=== PATIENT | female | born 1990 | race Caucasian/White ===

== ENCOUNTER 2017-03-05 19:22 | Emergency (ER) | payer OTHER ==
[~2017-03-05] VITALS: Ht 160 cm; Wt 72.3 kg
[~2017-03-05 19:22] MED LIST: MOTRIN800 MG PO; NO HOME MEDS; PRENATAL TABLE1 EAC3 PO; ZITHROMAX Z-PA250 MG PO
[2017-03-05 20:34] LABS: ADD MIUA? YES; BILIRUBIN NEGATIVE; BLOOD NEGATIVE; COLOR YELLOW ((YELLOW)); GLUCOSE (STRIP) NEGATIVE; KETONES NEGATIVE; LEUKOCYTES TRACE; NITRITE NEGATIVE; PROTEIN (STRIP) NEGATIVE; SPECIFIC GRAVITY 1.021 (1.000-1.030); UROBILINOGEN 0.2 MG/DL (0.2-1.0)
[2017-03-05 20:39] LABS: BACTERIA NONE SEEN /HPF; EPITHELIAL CELLS 1+ /HPF; MUCUS TRACE /LPF; RED BLOOD CELLS 0-5 /HPF (0-5); UCUL ADDED? NO; WHITE BLOOD CELLS 0-5 /HPF (0-5)
[2017-03-05 20:48] LABS: MCH 29.7 PG (29.0-34.0); MCHC 33.6 G/DL (30.0-36.0); MCV 88.4 FL (83-99); MEAN PLAT.VOLUME 9.8 uM^3 (9.5-12.4); PLATELET COUNT 250 K/uL (156-360); RBC DIS.WIDTH-CV 12.8 % (11.8-14.6); RBC DIS.WIDTH-SD 41.6 % (39-53); RED BLOOD COUNT 4.41 M/uL (3.80-5.20); WHITE BLOOD COUNT 9.9 K/uL (4.1-10.2)
[2017-03-05 20:59] LABS: CHLORIDE 106 mEq/L (99-109); POTASSIUM 4.5 mEq/L (3.7-5.4); SODIUM 137 mEq/L (136-147)
[2017-03-05 21:01] LABS: GLUCOSE 93 mg/dL (70-99)
[2017-03-05 21:02] LABS: ANION GAP 5 MEQ/L (2-14)
[2017-03-05 21:03] LABS: TOTAL BILIRUBIN 0.2 mg/dL (0.0-1.0)
[2017-03-05 21:05] LABS: ALKALINE PHOSPHATASE 59 IU/L (3-129); GFR ESTIMATE (CALCULATED) > 59 mL/min/
[2017-03-05 21:06] LABS: UREA NITROGEN (BUN) 15 mg/dL (9-23)
[2017-03-05 21:07] LABS: QUANTITATIVE HCG < 4.0 MIU/ML
[2017-03-05] MEDS ORDERED: MOTRIN800 MG PO (23:38)
[2017-03-05 23:47] VITALS: BP 134/88
== END 2017-03-05 23:49 | disposition home or self-care (01) ==
LOC: EME 19:22
DX: R10.31 Right lower quadrant pain (principal); F17.200 Nicotine dependence, unspecified, uncomplicated
CPT/HCPCS: 74177; 80053; 81003; 84702; 85027; 99281; 99284; J7030

== ENCOUNTER 2017-04-01 09:57 | Emergency (ER) | payer OTHER ==
[~2017-04-01] VITALS: Ht 160 cm; Wt 70.5 kg
[2017-04-01 10:26] VITALS: BP 127/74
[2017-04-01] MEDS ORDERED: MOTRIN800 MG PO (12:30)
[2017-04-01] MEDS ORDERED: ERYTHROMYC1 APPLICAT RIGHT EYE (12:30)
== END 2017-04-01 12:52 | disposition home or self-care (01) ==
LOC: EME 09:57
DX: S05.01XA Injury of conjunctiva and corneal abrasion without foreign body, right eye, initial encounter (principal); W22.8XXA Striking against or struck by other objects, initial encounter; F17.200 Nicotine dependence, unspecified, uncomplicated
CPT/HCPCS: 99281; 99283

== ENCOUNTER 2017-09-16 07:15 | Emergency (ER) | payer OTHER ==
[~2017-09-16] VITALS: Ht 160 cm; Wt 60.2 kg
[~2017-09-16 07:15] MED LIST changes: +ERYTHROMYC1 APPLICAT RIGHT EYE
[2017-09-16 07:39] LABS: BASOPHIL (%) 0.7 % (0-1); BASOPHIL COUNT 0.1 K/uL (0-0.1); EOSINOPHIL (%) 3.1 % (0-5); EOSINOPHIL COUNT 0.4 K/uL (0-0.3); HEMATOCRIT 41.9 % (36.0-46.0); HEMOGLOBIN 14.4 G/DL (11.9-15.5); IMMATURE GRANULOCYTE (%) 0.2 % (0.0-0.7); LYMPHOCYTE (%) 29.8 % (15-42); LYMPHOCYTE COUNT 3.5 K/uL (1.0-2.8); MCH 30.8 PG (29.0-34.0); MCHC 34.4 G/DL (30.0-36.0); MCV 89.5 FL (83-99); MONOCYTE (%) 9.4 % (3-12); MONOCYTE COUNT 1.1 K/uL (0-0.8); NEUTROPHIL (%) 56.8 % (45-76); NEUTROPHIL COUNT 6.6 K/uL (1.8-6.4); PLATELET COUNT 243 K/uL (156-360); RBC DIS.WIDTH-CV 13.4 % (11.8-14.6); RBC DIS.WIDTH-SD 44.2 % (39-53); RED BLOOD COUNT 4.68 M/uL (3.80-5.20); WHITE BLOOD COUNT 11.7 K/uL (4.1-10.2)
[2017-09-16 07:48] LABS: CHLORIDE 109 mEq/L (99-109); SODIUM 140 mEq/L (136-147)
[2017-09-16 07:50] LABS: GLUCOSE 90 mg/dL (70-99)
[2017-09-16 07:54] LABS: CREATININE 0.8 mg/dL (0.6-1.3); GFR ESTIMATE (CALCULATED) > 59 mL/min/; UREA NITROGEN (BUN) 13 mg/dL (9-23)
[2017-09-16 08:07] LABS: APPEARANCE CLEAR ((CLEAR)); BILIRUBIN NEGATIVE; BLOOD SMALL; COLOR YELLOW ((YELLOW)); GLUCOSE (STRIP) NEGATIVE; KETONES NEGATIVE; LEUKOCYTES SMALL; NITRITE NEGATIVE; PROTEIN (STRIP) NEGATIVE; SPECIFIC GRAVITY 1.021 (1.000-1.030); UROBILINOGEN 0.2 MG/DL (0.2-1.0)
[2017-09-16 08:11] LABS: BACTERIA NONE SEEN /HPF; EPITHELIAL CELLS RARE /HPF; MUCUS TRACE /LPF; RED BLOOD CELLS 0-5 /HPF (0-5); UCUL ADDED? YES
[2017-09-16] MEDS ORDERED: TYLENOL WITH C1 EACH PO (10:37)
[2017-09-16] MEDS ORDERED: MACROBID100 MG PO (10:37)
[2017-09-16 10:46] VITALS: BP 118/82
== END 2017-09-16 10:47 | disposition home or self-care (01) ==
LOC: EME 07:15
PROVIDERS: Physician Assistant
DX: N83.209 Unspecified ovarian cyst, unspecified side (principal); N39.0 Urinary tract infection, site not specified; F17.200 Nicotine dependence, unspecified, uncomplicated; F41.9 Anxiety disorder, unspecified; F31.9 Bipolar disorder, unspecified
CPT/HCPCS: 76856; 80048; 81003; 81025; 85025; 87086; 99281; 99285

== ENCOUNTER 2017-11-10 13:11 | Emergency (ER) | payer OTHER ==
[~2017-11-10] VITALS: Ht 160 cm; Wt 56.2 kg
[~2017-11-10 13:11] MED LIST changes: +MACROBID100 MG PO; +TYLENOL WITH C1 EACH PO
[2017-11-10 14:10] LABS: APPEARANCE SL.HAZY ((CLEAR)); BILIRUBIN NEGATIVE; BLOOD NEGATIVE; COLOR YELLOW ((YELLOW)); GLUCOSE (STRIP) NEGATIVE; KETONES NEGATIVE; LEUKOCYTES NEGATIVE; NITRITE NEGATIVE; PROTEIN (STRIP) NEGATIVE; SPECIFIC GRAVITY 1.029 (1.000-1.030); UROBILINOGEN 0.2 MG/DL (0.2-1.0)
[2017-11-10 14:21] LABS: BACTERIA RARE /HPF; EPITHELIAL CELLS RARE /HPF; MUCUS 2+ /LPF; RED BLOOD CELLS 0-5 /HPF (0-5); WHITE BLOOD CELLS 0-5 /HPF (0-5)
[2017-11-10 14:25] LABS: SOURCE SWAB
[2017-11-10 15:01] VITALS: BP 121/81
== END 2017-11-10 15:16 | disposition home or self-care (01) ==
LOC: EME 13:11
PROVIDERS: Physician Assistant
DX: Z20.2 Contact with and (suspected) exposure to infections with a predominantly sexual mode of transmission (principal); F41.9 Anxiety disorder, unspecified; F31.9 Bipolar disorder, unspecified; N83.209 Unspecified ovarian cyst, unspecified side; F17.200 Nicotine dependence, unspecified, uncomplicated
CPT/HCPCS: 81003; 87210; 87491; 87591; 99281; 99284

== ENCOUNTER 2017-12-18 22:32 | Inpatient (IN) | payer OTHER ==
[~2017-12-18] VITALS: Ht 162.6 cm; Wt 54.7 kg
[~2017-12-18 22:32] MED LIST changes: +CAMILA0.35 MG PO
[2017-12-19 06:38] VITALS: BP 135/56
[2017-12-19 12:20] VITALS: BP 148/87
[2017-12-19 15:56] LABS: HEMATOCRIT 34.5 % (36.0-46.0); HEMOGLOBIN 11.5 G/DL (11.9-15.5); MCH 30.3 PG (29.0-34.0); MCHC 33.3 G/DL (30.0-36.0); PLATELET COUNT 205 K/uL (156-360); RBC DIS.WIDTH-CV 13.9 % (11.8-14.6); RBC DIS.WIDTH-SD 46.5 % (39-53); RED BLOOD COUNT 3.79 M/uL (3.80-5.20); WHITE BLOOD COUNT 14.7 K/uL (4.1-10.2)
[2017-12-19 16:19] LABS: CHLORIDE 109 MEQ/L (99-109); CREATININE 0.8 MG/DL (0.6-1.3); GFR ESTIMATE (CALCULATED) > 59 mL/min/; GLUCOSE 177 mg/dL (70-99); SODIUM 136 MEQ/L (136-147); UREA NITROGEN (BUN) 12 mg/dL (9-23)
[2017-12-19 16:20] VITALS: BP 123/57
[2017-12-19 20:22] VITALS: BP 136/94
[2017-12-19 20:27] VITALS: BP 125/81
[2017-12-20 00:19] VITALS: BP 106/62
[2017-12-20 03:39] VITALS: BP 102/57
[2017-12-20 05:46] LABS: HEMATOCRIT 30.6 % (36.0-46.0); HEMOGLOBIN 10.1 G/DL (11.9-15.5); MCV 90.8 FL (83-99); PLATELET COUNT 184 K/uL (156-360); RBC DIS.WIDTH-CV 13.8 % (11.8-14.6); RBC DIS.WIDTH-SD 46.3 % (39-53); RED BLOOD COUNT 3.37 M/uL (3.80-5.20); WHITE BLOOD COUNT 13.4 K/uL (4.1-10.2)
[2017-12-20 06:09] LABS: CHLORIDE 111 MEQ/L (99-109); CREATININE 0.8 MG/DL (0.6-1.3); GFR ESTIMATE (CALCULATED) > 59 mL/min/; POTASSIUM 3.5 MEQ/L (3.7-5.4); SODIUM 140 MEQ/L (136-147); UREA NITROGEN (BUN) 8 mg/dL (9-23)
[2017-12-20 06:23] LABS: GLUCOSE 116 mg/dL (70-99)
[2017-12-20 08:54] VITALS: BP 120/72
[2017-12-20 11:43] VITALS: BP 129/70
[2017-12-20 16:29] VITALS: BP 116/69
[2017-12-20 20:20] VITALS: BP 120/71
[2017-12-21 00:20] VITALS: BP 97/59
[2017-12-21 04:01] VITALS: BP 113/75
[2017-12-21 05:31] LABS: HEMATOCRIT 29.4 % (36.0-46.0); HEMOGLOBIN 9.7 G/DL (11.9-15.5); MCH 30.3 PG (29.0-34.0); MCV 91.9 FL (83-99); PLATELET COUNT 157 K/uL (156-360); RBC DIS.WIDTH-CV 13.9 % (11.8-14.6); RBC DIS.WIDTH-SD 47.3 % (39-53); WHITE BLOOD COUNT 8.9 K/uL (4.1-10.2)
[2017-12-21 06:15] LABS: CHLORIDE 110 MEQ/L (99-109); CREATININE 0.9 MG/DL (0.6-1.3); GFR ESTIMATE (CALCULATED) > 59 mL/min/; POTASSIUM 3.9 MEQ/L (3.7-5.4); SODIUM 142 MEQ/L (136-147); UREA NITROGEN (BUN) 9 mg/dL (9-23)
[2017-12-21 06:17] LABS: GLUCOSE 81 mg/dL (70-99)
[2017-12-21 07:29] VITALS: BP 146/80
[2017-12-21] MEDS ORDERED: TRAMADOL HCL50 MG PO (08:48)
== END 2017-12-21 09:38 | disposition home health service (06) | DRG 742 ==
LOC: 2SOUTH → ENRESERV 22:32 → 2SOUTH 12-19 06:07 → ENRESERV 12-19 11:31 → 2EAST 12-19 11:53 → 2SOUTH 12-19 14:18 → 2EAST 12-21 09:38
PROVIDERS: Obstetrics & Gynecology Gynecologic Oncology
PROC: 0DNW0ZZ Release Peritoneum, Open Approach (ICD-10-PCS; principal; 2017-12-19)
PROC: 0UB00ZZ Excision of Right Ovary, Open Approach (ICD-10-PCS; principal; 2017-12-19)
DX: N83.291 Other ovarian cyst, right side (principal); D62 Acute posthemorrhagic anemia; N83.11 Corpus luteum cyst of right ovary; N73.6 Female pelvic peritoneal adhesions (postinfective)
CPT/HCPCS: 36415; 80048; 81025; 85027; 86850; 86900; 86901; 86920; 88305; J0131; J0690; J1100; J1170; J1650; J1885; J2250; J2405; J2710; J2765; J3010; J7643; S0020

== ENCOUNTER 2018-03-23 20:06 | Emergency (ER) | payer OTHER ==
[~2018-03-23] VITALS: Ht 160 cm; Wt 56.0 kg
[~2018-03-23 20:06] MED LIST changes: +TRAMADOL HCL50 MG PO
[2018-03-23 20:11] VITALS: BP 129/101
[2018-03-23 20:19] LABS: SOURCE URINE
[2018-03-25 13:00] LABS: CHLAMYDIA TRACHOMATIS NEGATIVE; NEISSERIA GONORRHOEAE NEGATIVE
== END 2018-03-23 20:30 | disposition left against medical advice (07) ==
LOC: EME 20:06
PROVIDERS: Nurse Practitioner Family
DX: Z20.2 Contact with and (suspected) exposure to infections with a predominantly sexual mode of transmission (principal); Z53.21 Procedure and treatment not carried out due to patient leaving prior to being seen by health care provider
CPT/HCPCS: 87491; 87591